=== PATIENT | female | born 1970 | race Caucasian/White ===

== ENCOUNTER 2016-06-11 04:35 | Emergency (ER) | payer MEDICAID ==
[~2016-06-11] VITALS: Ht 162.6 cm; Wt 81.2 kg
[2016-06-11 04:38] VITALS: BP 129/93
--- NOTE | 2016-06-11 05:18 | NUR ---
45 Y/O F W/C/O VOMITING WHEN SHE COUGH FOR 3 WEEKS AND FEVER LAST NIGHT. O2 SAT 97 % RA. NO S/S OF RESP DISTRESS NOTED, ER MD AT BEDSIDE EVALUATING PT.
[2016-06-11] MEDS ORDERED: ONDANSETRON 4 MG ODT PO ONE (05:30)
--- NOTE | 2016-06-11 06:44 | NUR ---
PT AWATING FOR RESULTS. NO S/S OF DISTRESS NOTED.
--- NOTE | 2016-06-11 07:03 | NUR ---
REPORT GIVEN TO ADAM BALLARD. PT STABLE, VSS. NO S/S OF DISTRESS NOTED AT THE MOMENT.
--- NOTE | 2016-06-11 07:12 | NUR ---
Patient appears to be resting comfortably in bed. Vital Signs within normal limits. Respirations even and unlabored. WILL CONTINUE TO MONITOR.
[2016-06-11 07:17] VITALS: BP 126/86
--- NOTE | 2016-06-11 07:17 | NUR ---
Patient discharged with v/s stable. Written and verbal after care instructions given and explained. Patient alert, oriented and verbalized understanding of instructions. Ambulatory with steady gait. All questions addressed prior to discharge. ID band removed. Patient advised to follow up with PMD. Rx of ZOFRAN ODT 4MG & OMEPRAZOLE 40MG given. Patient educated on indication of medication including possible reaction and side effects. Opportunity to ask questions provided and answered.
== END 2016-06-11 07:17 | disposition home or self-care (01) ==
LOC: MED 04:35
DX: R05 Cough (principal); Z88.0 Allergy status to penicillin; Z88.6 Allergy status to analgesic agent; Z88.2 Allergy status to sulfonamides
CPT/HCPCS: 71010; 99283; Q0092; S0119

== ENCOUNTER 2016-06-18 20:26 | Emergency (ER) | payer MEDICAID ==
[~2016-06-18] VITALS: Ht 162.6 cm; Wt 79.4 kg
[2016-06-18 20:38] VITALS: BP 110/55
--- NOTE | 2016-06-18 20:59 | NUR ---
PT TAKEN TO FAST TRACK
--- NOTE | 2016-06-18 21:03 | NUR ---
45 Y/O F W/C/O LEFT 4TH FINGER LACERATION,SHE WAS CUTTING AND ACCIDENTALLY CUT HER FINGER LAST NIGHT 2230 HOURS. DENIES ANY FEVER OR CHILLS. NO DRAINAGE PRESENT, SLIGHTLY RED AND SWOLLEN. PA MADE AWARE.
--- NOTE | 2016-06-18 21:08 | NUR ---
PA EVALUATING PATIENT
[2016-06-18] MEDS ORDERED: NEOMYCIN/POLYMYXIN/BACITRACIN 0.9 GM/1 PKT TP STA (21:11)
[2016-06-18 21:58] VITALS: BP 101/74
--- NOTE | 2016-06-18 21:58 | NUR ---
Patient discharged with v/s stable. Written and verbal after care instructions given and explained. Patient alert, oriented and verbalized understanding of instructions. Ambulatory with steady gait. All questions addressed prior to discharge. ID band removed. Patient advised to follow up with PMD IN 2 DAYS OR RETURN TO ER IF CONDITION WORSENS. Rx of CEPHALEXIN, AND BACTROBAN given. Patient educated on indication of medication including possible reaction and side effects. Opportunity to ask questions provided and answered.
== END 2016-06-18 21:58 | disposition home or self-care (01) ==
LOC: MED 20:26
DX: S61.215A Laceration without foreign body of left ring finger without damage to nail, initial encounter (principal); Z88.0 Allergy status to penicillin; Z88.6 Allergy status to analgesic agent; Z88.2 Allergy status to sulfonamides; W26.0XXA Contact with knife, initial encounter; Y93.89 Activity, other specified; Y92.89 Other specified places as the place of occurrence of the external cause; Y99.8 Other external cause status
CPT/HCPCS: 90471; 90715; 99283